=== PATIENT | female | born 1980 | race Caucasian/White ===

== ENCOUNTER 2016-12-09 16:40 | Emergency (ER) | payer MEDICAID ==
[~2016-12-09] VITALS: Ht 162.6 cm; Wt 70.3 kg
[2016-12-09 17:05] VITALS: BP_SYST 122
--- NOTE | 2016-12-09 17:20 | NUR ---
Dr Ferrera at bedside examining patient
--- NOTE | 2016-12-09 17:27 | NUR ---
Patient to ER bed 5 to gown for evaluation. Side rails up. Report given to Kayla NAPOLES.
--- NOTE | 2016-12-09 17:30 | NUR ---
Pt brought by , ambulatory, A&Ox4, pt c/o headache 11/24 and nausea, VS WNL, cap refill <3, respirations even and unlabored, skin pink and warm.
[2016-12-09] MEDS ORDERED: DIPHENHYDRAMINE INJ 50 MG/ML VIAL IVP ONE (17:45)
[2016-12-09] MEDS ORDERED: PROCHLORPERAZINE EDISYLATE 10 MG/2 ML VIAL IVP ONE (17:45)
[2016-12-09] MEDS ORDERED: NACL 0.9% 1,000 ML IV ONE (17:45)
--- NOTE | 2016-12-09 19:15 | NUR ---
Pt laying in bed. Pt drowsy. Pt opened eye and went back to sleep. Side rail up for fall precaution.
--- NOTE | 2016-12-09 19:55 | NUR ---
Called larissa. stated will be in to [facility] pt to be dischraged home.
--- NOTE | 2016-12-09 20:12 | NUR ---
Pt asleep. Drowsy.
[2016-12-09 20:38] VITALS: BP_SYST 116
--- NOTE | 2016-12-09 20:38 | NUR ---
Patient and Conor given written and verbal discharge instructions and verbalizes understanding. ER MD discussed with patient the results and treatment provided. Patient in stable condition. ID arm band removed. IV catheter removed intact and dressing applied, no active bleeding. Rx of excedrin 2 geltabs every fout hours as needed given. Patient educated on pain management and to follow up with PMD. Pain Scale 0/10. Opportunity for questions provided and answered. No any allergies noted for the medication.
== END 2016-12-09 20:38 | disposition home or self-care (01) ==
LOC: SED 16:40
DX: R51 Headache (principal); F17.200 Nicotine dependence, unspecified, uncomplicated; R03.0 Elevated blood-pressure reading, without diagnosis of hypertension; Z71.6 Tobacco abuse counseling
CPT/HCPCS: 81025; 96361; 96374; 96375; 99284; J0780; J1200; J7030

== ENCOUNTER 2018-02-13 23:07 | Emergency (ER) | payer MEDICAID ==
[~2018-02-13] VITALS: Ht 162.6 cm; Wt 74.8 kg
[2018-02-13 23:13] VITALS: BP_SYST 132
[2018-02-13] MEDS ORDERED: IBUPROFEN 800 MG TABLET PO ONE (23:30)
[2018-02-14 00:02] VITALS: BP_SYST 126
== END 2018-02-14 00:02 | disposition home or self-care (01) ==
LOC: SED 23:07
DX: M79.632 Pain in left forearm (principal)
CPT/HCPCS: 99282

== ENCOUNTER 2018-06-11 02:26 | Emergency (ER) | payer MEDICAID ==
[~2018-06-11] VITALS: Ht 162.6 cm; Wt 69.4 kg
[2018-06-11 02:27] VITALS: BP_SYST 138
--- NOTE | 2018-06-11 02:40 | NUR ---
Patient to ER bed 7 to gown for evaluation. Side rails up. Report given to Gi NAPOLES.
--- NOTE | 2018-06-11 02:48 | NUR ---
0248 - Pt ambulated to ED bed 7 from [facility]. Pt states that she thinks she was bit by a bug a few days ago. C/o redness/swelling to 2 areas on right leg/right buttock. Pt reports swelling, redness, and some pus/drainage. Pt given warm blanket to cover self and remove leggings for provider eval. A&OX4, resp even and unlabored, reports pain while sitting. denies fevers.
--- NOTE | 2018-06-11 03:00 | NUR ---
0300 - ER at bedside examining patient.
[2018-06-11] MEDS ORDERED: LIDOCAINE 1% 10 MG/ML, 20 ML MDV INJ ONE (03:15)
[2018-06-11 03:20] VITALS: BP_SYST 138
--- NOTE | 2018-06-11 03:20 | NUR ---
0320 - Patient given written and verbal discharge instructions and verbalizes understanding. ER MD discussed with patient the results and treatment provided. Patient in stable condition. ID arm band removed. Rx of bactrim, norco given. Patient educated on pain management and to follow up with PMD. Opportunity for questions provided and answered. Medication side effect fact sheet provided. A&ox4, ambulatory w/ steady gait.
== END 2018-06-11 03:20 | disposition home or self-care (01) ==
LOC: SED 02:26
DX: L02.31 Cutaneous abscess of buttock (principal)
CPT/HCPCS: 10060; 99284; J2001; 99283